=== PATIENT | female | born 1970 | race Caucasian/White ===

== ENCOUNTER 2018-12-10 13:25 | Inpatient (IN) | payer BC, MEDICAID ==
[~2018-12-10] VITALS: Ht 172.7 cm; Wt 72.6 kg
[2018-12-10 13:25] VITALS: BP_SYST 123
[2018-12-10] MEDS ORDERED: FOLIC ACID 1 MG, THIAMINE HCL 100 MG, MAGNESIUM SULFATE 1 GM, MVI 10 ML in NACL 0.9% 1,... IV ONE ×16 (13:45→17:00)
[2018-12-10] MEDS ORDERED: chlordiazePOXIDE HCL 25 MG CAPSULE PO ONE (13:45)
[2018-12-10 14:05] LABS: BASOPHILS % (AUTO) 0.3 % (0.0-2.0); EOSINOPHILS % (AUTO) 0.4 % (0.0-4.0); HEMATOCRIT 33.1 % (36-48); HEMOGLOBIN 10.2 g/dL (12.0-16.0); LYMPHOCYTES # (AUTO) 0.3 K/uL (1.0-5.5); LYMPHOCYTES % (AUTO) 5.6 % (20.5-51.5); MEAN CORPUSCULAR HEMOGLOBIN 25 pg (27-31); MEAN CORPUSCULAR HGB CONC 31 % (32-36); MEAN CORPUSCULAR VOLUME 81 fL (79.0-98.0); MONOCYTES # (AUTO) 0.5 K/uL (0.0-1.0); MONOCYTES % (AUTO) 8.9 % (1.7-9.3); NEUTROPHILS % (AUTO) 84.8 % (40.0-70.0); PLATELET COUNT (AUTO) 148 K/uL (130-430); RED BLOOD CELL COUNT(AUTO) 4.08 MIL/uL (4.2-6.2); RED CELL DISTRIBUTION WIDTH 19.3 % (9.0-15.0); WHITE BLOOD COUNT (AUTO) 5.9 K/uL (4.8-10.8)
[2018-12-10 14:19] LABS: ANION GAP 15 (5-15); CALCIUM 9.2 mg/dL (8.4-11.0); CHLORIDE 100 mmol/L (98-107); CREATININE 0.85 mg/dL (0.55-1.30); GLUCOSE 172 mg/dL (70-99); POTASSIUM 3.2 mmol/L (3.5-5.1); SODIUM SERUM 136 mmol/L (136-145); UREA NITROGEN, BLOOD 8 mg/dL (8-21)
[2018-12-10 14:22] LABS: PROTHROMBIN TIME 10.1 SECS (9.5-12.5)
[2018-12-10 14:23] LABS: ALANINE AMINOTRANSFERASE 51 U/L (12-78); ALBUMIN 3.7 g/dL (3.4-4.8); ASPARTATE AMINOTRANSFERASE 73 U/L (10-37); TOTAL BILIRUBIN 0.8 mg/dL (0.0-1.0)
[2018-12-10 14:24] LABS: ALCOHOL, BLOOD < 3 mg/dL (<10); GFR AFRICAN AMERICAN 91 mL/min (>90)
[2018-12-10] MEDS ORDERED: ONDANSETRON HCL 4 MG/2 ML VIAL IVP ONE (15:15)
[2018-12-10 15:30] LABS: BILIRUBIN,URINE NEGATIVE (NEGATIVE); BLOOD, URINE 1+ (NEGATIVE); CLARITY/URINE HAZY (CLEAR); COLOR,URINE YELLOW (YELLOW); GLUCOSE,URINE NEGATIVE (NEGATIVE); KETONES,URINE 2+ (NEGATIVE); LEUKOCYTE ESTERASE ,URINE NEGATIVE (NEGATIVE); NITRITE, URINE NEGATIVE (NEGATIVE); PROTEIN URINE 2+ (NEGATIVE); UROBILINOGEN,URINE 0.2 (0.2-1.0)
[2018-12-10 15:46] LABS: BARBITURATE, URINE NEGATIVE (NEG <=200); BENZODIAZEPINE, URINE NEGATIVE (NEG <=150); CANNABINOID, URINE NEGATIVE (NEG <=50); COCAINE, URINE NEGATIVE (NEG <=150); METHAMPHETAMINES SCREEN,URINE NEGATIVE (NEG <=500); OPIATE, URINE NEGATIVE (NEG <=100); PHENCYCLIDINE SCREEN,URINE NEGATIVE (NEG <=25); UR TRICYCLIC ANTIDEPRESSANTS NEGATIVE (NEG <=300); URINE AMPHETAMINE NEGATIVE (NEG <=500); URINE METHADONE NEGATIVE (NEG <=200); URINE OXYCODONE SCREEN NEGATIVE (NEG <=100); URINE PROPOXYPHENE SCREEN NEGATIVE (NEG <=300)
[2018-12-10] MEDS ORDERED: MONT10TA25 PO (15:48)
[2018-12-10] MEDS ORDERED: OMEP20TA20 PO (15:48)
[2018-12-10] MEDS ORDERED: PRO20 PO (15:48)
[2018-12-10] MEDS ORDERED: BUPR100T13 PO (15:48)
[2018-12-10] MEDS ORDERED: FLUT1DIS5 IH (15:48)
[2018-12-10 15:51] LABS: BACTERIA,URINE MODERATE /HPF (None Seen); MUCUS,URINE None Seen /LPF (None Seen); RBC,URINE 0-3 /HPF (0-3); WBC,URINE 0-3 /HPF (0-3)
[2018-12-10] MEDS ORDERED: chlordiazePOXIDE HCL 25 MG CAPSULE ONE (15:52)
[2018-12-10] MEDS ORDERED: POTASSIUM CHLORIDE 20 MEQ TAB.PRT.SR PO ONE (17:00)
[2018-12-10] MEDS ORDERED: PHENYTOIN 100 MG CAPSULE PO ONE (17:00)
[2018-12-10] MEDS ORDERED: cloNIDine HCL 0.1 MG TABLET PO PRN (17:00)
[2018-12-10] MEDS ORDERED: LORazepam 2 MG/ML VIAL IVP PRN (17:00)
[2018-12-10 17:48] VITALS: BP_SYST 119
[2018-12-10] MEDS: chlordiazePOXIDE HCL 25 MG CAPSULE PO SCH ×2 (17:51→21:01)
[2018-12-10] MEDS ORDERED: MORPHINE SULFATE 10 MG/5 ML ORAL SOL. UDC PO ONE (18:15)
[2018-12-10 19:30] VITALS: BP_SYST 121
[2018-12-10] MEDS: MORPHINE SULFATE 10 MG/5 ML ORAL SOL. UDC PO PRN ×2 (19:44→23:48)
[2018-12-10] MEDS: PHENYTOIN 100 MG CAPSULE PO SCH (21:01)
[2018-12-11 00:33] VITALS: BP_SYST 130
[2018-12-11] MEDS: MORPHINE SULFATE 10 MG/5 ML ORAL SOL. UDC PO PRN ×2 (03:45→08:36)
[2018-12-11 06:27] LABS: BASOPHILS % (AUTO) 0.7 % (0.0-2.0); EOSINOPHILS # (AUTO) 0.1 K/uL (0.0-0.4); EOSINOPHILS % (AUTO) 1.7 % (0.0-4.0); HEMATOCRIT 30.2 % (36-48); HEMOGLOBIN 9.3 g/dL (12.0-16.0); LYMPHOCYTES # (AUTO) 1.1 K/uL (1.0-5.5); LYMPHOCYTES % (AUTO) 24.4 % (20.5-51.5); MEAN CORPUSCULAR HEMOGLOBIN 25 pg (27-31); MEAN CORPUSCULAR HGB CONC 31 % (32-36); MEAN CORPUSCULAR VOLUME 81 fL (79.0-98.0); MONOCYTES # (AUTO) 0.6 K/uL (0.0-1.0); NEUTROPHILS # (AUTO) 2.8 K/uL (1.8-7.7); NEUTROPHILS % (AUTO) 60.2 % (40.0-70.0); PLATELET COUNT (AUTO) 123 K/uL (130-430); RED BLOOD CELL COUNT(AUTO) 3.71 MIL/uL (4.2-6.2); WHITE BLOOD COUNT (AUTO) 4.6 K/uL (4.8-10.8)
[2018-12-11 07:01] LABS: CREATININE 0.61 mg/dL (0.55-1.30)
[2018-12-11 07:13] LABS: TOTAL BILIRUBIN 0.6 mg/dL (0.0-1.0)
[2018-12-11 07:48] LABS: POTASSIUM 2.9 mmol/L (3.5-5.1)
[2018-12-11 08:00] VITALS: BP_SYST 115
[2018-12-11] MEDS: buPROPion HCL 100 MG TABLET PO SCH (08:25)
[2018-12-11] MEDS: chlordiazePOXIDE HCL 25 MG CAPSULE PO SCH ×4 (08:25→21:03)
[2018-12-11] MEDS: OMEPRAZOLE 20 MG CAPSULE.DR (PriLOSEC) PO SCH (08:25)
[2018-12-11] MEDS: FLUoxetine HCL 20 MG CAPSULE (PROzac) PO SCH (08:25)
[2018-12-11] MEDS: MONTELUKAST 10 MG TABLET PO SCH (08:26)
[2018-12-11] MEDS ORDERED: POTASSIUM CHLORIDE 40 MEQ, LIDOCAINE JECT 2% PF 100 MG 50 MG in NS 250 ML IV ONE (08:30)
[2018-12-11] MEDS ORDERED: FOLIC ACID 1 MG TABLET PO SCH (09:00)
[2018-12-11] MEDS ORDERED: THIAMINE HCL 100 MG TABLET PO SCH (09:00)
[2018-12-11 12:37] VITALS: BP_SYST 112
[2018-12-11] MEDS: FOLIC ACID 1 MG, THIAMINE HCL 100 MG, MAGNESIUM SULFATE 1 GM, MVI 10 ML in NACL 0.9% 1,... IV SCH (14:22)
[2018-12-11 16:21] VITALS: BP_SYST 104
[2018-12-11 20:24] VITALS: BP_SYST 112
[2018-12-11] MEDS: POTASSIUM CHLORIDE 20 MEQ/PKT PACKET PO SCH (21:03)
[2018-12-11] MEDS: PHENYTOIN 100 MG CAPSULE PO SCH (21:03)
[2018-12-12 00:28] VITALS: BP_SYST 111
[2018-12-12 06:49] LABS: BASOPHILS % (AUTO) 0.5 % (0.0-2.0); EOSINOPHILS # (AUTO) 0.2 K/uL (0.0-0.4); EOSINOPHILS % (AUTO) 2.9 % (0.0-4.0); HEMATOCRIT 33.1 % (36-48); HEMOGLOBIN 10.2 g/dL (12.0-16.0); LYMPHOCYTES # (AUTO) 1.2 K/uL (1.0-5.5); LYMPHOCYTES % (AUTO) 22.6 % (20.5-51.5); MEAN CORPUSCULAR HEMOGLOBIN 25 pg (27-31); MEAN CORPUSCULAR HGB CONC 31 % (32-36); MONOCYTES # (AUTO) 0.6 K/uL (0.0-1.0); MONOCYTES % (AUTO) 10.6 % (1.7-9.3); NEUTROPHILS # (AUTO) 3.5 K/uL (1.8-7.7); NEUTROPHILS % (AUTO) 63.4 % (40.0-70.0); PLATELET COUNT (AUTO) 154 K/uL (130-430); RED BLOOD CELL COUNT(AUTO) 4.01 MIL/uL (4.2-6.2); RED CELL DISTRIBUTION WIDTH 19.2 % (9.0-15.0); WHITE BLOOD COUNT (AUTO) 5.5 K/uL (4.8-10.8)
[2018-12-12 07:13] LABS: MEAN CORPUSCULAR VOLUME 83 fL (79.0-98.0)
[2018-12-12 08:04] LABS: ALBUMIN 3.2 g/dL (3.4-4.8); CALCIUM 9.2 mg/dL (8.4-11.0); CREATININE 0.53 mg/dL (0.55-1.30); POTASSIUM 3.4 mmol/L (3.5-5.1); TOTAL BILIRUBIN 0.5 mg/dL (0.0-1.0)
[2018-12-12 08:15] VITALS: BP_SYST 119
[2018-12-12] MEDS: FLUoxetine HCL 20 MG CAPSULE (PROzac) PO SCH (08:37)
[2018-12-12] MEDS: OMEPRAZOLE 20 MG CAPSULE.DR (PriLOSEC) PO SCH (08:37)
[2018-12-12] MEDS: MONTELUKAST 10 MG TABLET PO SCH (08:37)
[2018-12-12] MEDS: chlordiazePOXIDE HCL 25 MG CAPSULE PO SCH ×4 (08:37→21:21)
[2018-12-12] MEDS: POTASSIUM CHLORIDE 20 MEQ/PKT PACKET PO SCH ×2 (08:37→21:21)
[2018-12-12] MEDS: buPROPion HCL 100 MG TABLET PO SCH (08:39)
[2018-12-12 12:20] VITALS: BP_SYST 100
[2018-12-12] MEDS: FOLIC ACID 1 MG, THIAMINE HCL 100 MG, MAGNESIUM SULFATE 1 GM, MVI 10 ML in NACL 0.9% 1,... IV SCH (14:14)
[2018-12-12 16:04] VITALS: BP_SYST 110
[2018-12-12] MEDS: PHENYTOIN 100 MG CAPSULE PO SCH (21:21)
[2018-12-12 21:38] VITALS: BP_SYST 114
[2018-12-13 01:11] VITALS: BP_SYST 112
[2018-12-13 06:27] LABS: BASOPHILS % (AUTO) 0.5 % (0.0-2.0); EOSINOPHILS # (AUTO) 0.2 K/uL (0.0-0.4); EOSINOPHILS % (AUTO) 3.3 % (0.0-4.0); HEMATOCRIT 30.9 % (36-48); HEMOGLOBIN 9.7 g/dL (12.0-16.0); LYMPHOCYTES # (AUTO) 1.2 K/uL (1.0-5.5); LYMPHOCYTES % (AUTO) 22.1 % (20.5-51.5); MEAN CORPUSCULAR HEMOGLOBIN 26 pg (27-31); MEAN CORPUSCULAR HGB CONC 32 % (32-36); MEAN CORPUSCULAR VOLUME 82 fL (79.0-98.0); MONOCYTES # (AUTO) 0.7 K/uL (0.0-1.0); MONOCYTES % (AUTO) 12.5 % (1.7-9.3); NEUTROPHILS # (AUTO) 3.3 K/uL (1.8-7.7); NEUTROPHILS % (AUTO) 61.6 % (40.0-70.0); PLATELET COUNT (AUTO) 141 K/uL (130-430); RED BLOOD CELL COUNT(AUTO) 3.75 MIL/uL (4.2-6.2); RED CELL DISTRIBUTION WIDTH 19.4 % (9.0-15.0); WHITE BLOOD COUNT (AUTO) 5.3 K/uL (4.8-10.8)
[2018-12-13 07:12] LABS: ALBUMIN 2.8 g/dL (3.4-4.8); CALCIUM 8.9 mg/dL (8.4-11.0); CREATININE 0.53 mg/dL (0.55-1.30); POTASSIUM 3.9 mmol/L (3.5-5.1); TOTAL BILIRUBIN 0.3 mg/dL (0.0-1.0)
[2018-12-13 07:51] VITALS: BP_SYST 128
[2018-12-13] MEDS: FLUoxetine HCL 20 MG CAPSULE (PROzac) PO SCH (09:33)
[2018-12-13] MEDS: MONTELUKAST 10 MG TABLET PO SCH (09:33)
[2018-12-13] MEDS: buPROPion HCL 100 MG TABLET PO SCH (09:33)
[2018-12-13] MEDS: POTASSIUM CHLORIDE 20 MEQ/PKT PACKET PO SCH (09:33)
[2018-12-13] MEDS: OMEPRAZOLE 20 MG CAPSULE.DR (PriLOSEC) PO SCH (09:33)
[2018-12-13] MEDS: chlordiazePOXIDE HCL 25 MG CAPSULE PO SCH ×3 (09:34→16:14)
[2018-12-13 12:18] VITALS: BP_SYST 127
[2018-12-13] MEDS: FOLIC ACID 1 MG, THIAMINE HCL 100 MG, MAGNESIUM SULFATE 1 GM, MVI 10 ML in NACL 0.9% 1,... IV SCH (12:20)
[2018-12-13] MEDS: MORPHINE SULFATE 10 MG/5 ML ORAL SOL. UDC PO PRN (12:40)
[2018-12-13 15:45] VITALS: BP_SYST 109
[2018-12-13 18:06] VITALS: BP_SYST 96
[2018-12-13] MEDS ORDERED: FOLI-43 PO (18:13)
[2018-12-13] MEDS ORDERED: PRO40 PO (18:14)
[2018-12-13] MEDS ORDERED: THIA50TA10 PO (18:14)
[2018-12-13] MEDS ORDERED: PHEN100C4 PO (18:14)
[2018-12-13] MEDS ORDERED: LIB10 PO (18:15)
[2018-12-13] MEDS ORDERED: ACAMPROSATE CALCIUM 333 MG TABLET.DR PO SCH (21:00)
== END 2018-12-13 18:45 | disposition home or self-care (01) | DRG 53 ==
LOC: SED 13:25 → STU 16:28
PROVIDERS: ADMIT Internal Medicine; ATTEND Internal Medicine
DX: G40.89 Other seizures (principal); F33.9 Major depressive disorder, recurrent, unspecified; E87.6 Hypokalemia; F10.239 Alcohol dependence with withdrawal, unspecified; F41.9 Anxiety disorder, unspecified; J45.909 Unspecified asthma, uncomplicated
CPT/HCPCS: 36415; 70450-TC; 71045; 80053; 80307; 81000-TC; 82105; 84484; 84703; 85025; 85610-TC; 85730-TC; 87086; 93005; 95816; 96374; 97116-GP; 97530-GP; 99285; G0378; G0482; J2405; J3411; J3475; J3480; J3490; J7030; J7050

== ENCOUNTER 2018-12-30 21:52 | Inpatient (IN) | payer MEDICAID ==
[~2018-12-30] VITALS: Ht 172.7 cm; Wt 72.1 kg
[2018-12-30 21:52] VITALS: BP_SYST 137
[~2018-12-30 21:52] MED LIST: BUPR100T13 PO; FLUT1DIS5 IH; FOLI-43 PO; LIB10 PO; MONT10TA25 PO; OMEP20TA20 PO; PHEN100C4 PO; PRO20 PO; PRO40 PO; THIA50TA10 PO
--- NOTE | 2018-12-30 21:52 | NUR ---
Patient to ER bed 07 to gown for evaluation. Side rails up. Report given to GEORGETTE Soliz
--- NOTE | 2018-12-30 21:56 | NUR ---
ER at bedside examining patient.
[2018-12-30] MEDS ORDERED: ALBUTEROL SULFATE 0.083% 2.5 MG/3 ML VIAL.NEB IH ONE (22:00)
[2018-12-30] MEDS ORDERED: IPRATROPIUM BROM 0.5 MG/2.5 ML VIAL.NEB (ATROVENT) IH ONE (22:00)
--- NOTE | 2018-12-30 22:15 | NUR ---
Pt BIB son to ED C/O acute asthma exacerbation associated with SOB for about 20 min prior to arrival. Pt reportedly rapidly drank beer from a "beer bong" prior to symptom onset. She is concern she may have aspirated some beer. The Pt's nebulizer was malfunctioning and her Advair provided no improvement. Last month patient was admitted her for alcohol withdrawal seizure as she was attempting to quit alcohol at that time. Pt admits to drinking alcohol throughout the day today. Pt with med Hx of asthma and alcohol abuse. No other injuries and or complaints noted. VSS (low O2 sat addressed with RT at bedside starting ABG draw and adm of breathing tx) no other s/s of acute distress. Resting on gurney with rails up
[2018-12-30 22:27] LABS: BASOPHILS # (AUTO) 0.1 K/uL (0.0-0.2); BASOPHILS % (AUTO) 1.1 % (0.0-2.0); EOSINOPHILS # (AUTO) 0.2 K/uL (0.0-0.4); EOSINOPHILS % (AUTO) 3.8 % (0.0-4.0); HEMOGLOBIN 11.3 g/dL (12.0-16.0); LYMPHOCYTES # (AUTO) 2.8 K/uL (1.0-5.5); LYMPHOCYTES % (AUTO) 48.2 % (20.5-51.5); MEAN CORPUSCULAR HEMOGLOBIN 25 pg (27-31); MEAN CORPUSCULAR HGB CONC 31 % (32-36); MEAN CORPUSCULAR VOLUME 81 fL (79.0-98.0); MONOCYTES # (AUTO) 0.3 K/uL (0.0-1.0); NEUTROPHILS # (AUTO) 2.3 K/uL (1.8-7.7); NEUTROPHILS % (AUTO) 40.9 % (40.0-70.0); PLATELET COUNT (AUTO) 326 K/uL (130-430); RED BLOOD CELL COUNT(AUTO) 4.44 MIL/uL (4.2-6.2); RED CELL DISTRIBUTION WIDTH 18.8 % (9.0-15.0); WHITE BLOOD COUNT (AUTO) 5.7 K/uL (4.8-10.8)
[2018-12-30 22:36] LABS: CALCIUM 9.4 mg/dL (8.4-11.0); CREATININE 0.67 mg/dL (0.55-1.30); POTASSIUM 3.6 mmol/L (3.5-5.1)
--- NOTE | 2018-12-30 22:37 | NUR ---
Portable X Ray bedside, Pt in stable condition
[2018-12-30 22:42] LABS: ALBUMIN 3.7 g/dL (3.4-4.8); TOTAL BILIRUBIN 0.2 mg/dL (0.0-1.0)
[2018-12-30] MEDS ORDERED: NACL 0.9% 1,000 ML IV ONE (22:45)
[2018-12-30] MEDS ORDERED: methylPREDNISolone SOD SUCC/PF 62.5 MG/ML VIAL IVP ONE (23:15)
[2018-12-30] MEDS ORDERED: FOLIC ACID 1 MG, THIAMINE HCL 100 MG, MAGNESIUM SULFATE 1 GM, MVI 10 ML in NACL 0.9% 1,... IV ONE (23:30)
--- NOTE | 2018-12-30 23:30 | NUR ---
VSS, no s/s of acute distress. Resting on gurney with rails up
[2018-12-31] VITALS (7 sets, daily range): BP systolic 113–128
[2018-12-31] MEDS ORDERED: MAGNESIUM SULFATE 1 GM/2 ML VIAL ONE (00:07)
[2018-12-31] MEDS ORDERED: FOLIC ACID 5 MG/ML VIAL IV ONE (00:07)
[2018-12-31] MEDS ORDERED: THIAMINE HCL 100 MG/ML VIAL ONE (00:07)
[2018-12-31] MEDS ORDERED: MVI 10 ML VIAL IV ONE (00:07)
--- NOTE | 2018-12-31 00:19 | NUR ---
Patient will be admitted to care of Dr. Bartlett. Admitted to Telemetry unit. Will go to room 120. Belongings list completed. Summary report printed. Report will be given at bedside.
--- NOTE | 2018-12-31 00:19 | NUR ---
ADMIT NOTE Received pt from ER to the floor with a diagnosis of acute respiratory failure. Admission process initiated. patient oriented to pain management, safety and call light-teach back done.
--- NOTE | 2018-12-31 00:19 | NUR ---
Transfer to Telemetry via ACLS protocol. Licensed nurse present. IV present no signs or symptoms of infiltration.
--- NOTE | 2018-12-31 00:40 | NUR ---
CONSULTATION PAGED REASON FOR CONSULTATION: Respiratory Failure WAS CONSULT CALLED? Yes PERSON WHO WAS NOTIFIED: Chelle CONSULTING PHYSICIAN: Dr. Jain (Dr. Garcia is the On-Call Physician) WAREHOUSE ADMINISTRATIVE ASSISTANT SPECIALTY: Pulmonary WAREHOUSE ADMINISTRATIVE ASSISTANT PHONE NUMBER: REQUESTING PHYSICIAN: Dr. Bartlett
[2018-12-31] MEDS: IPRATROPIUM/ALBUTEROL SULFATE 3 ML AMPUL.NEB (DUONEB) INH SCH ×3 (01:31→11:24)
--- NOTE | 2018-12-31 02:32 | NUR ---
Patient in bed asleep with audible breath sounds heard. On 2L NC and tolerating well. Will cont to monitor for any respiratory distress.
--- NOTE | 2018-12-31 04:10 | NUR ---
No change in condition from previous note.
[2018-12-31] MEDS ORDERED: methylPREDNISolone SOD SUCC/PF 62.5 MG/ML VIAL IVP SCH (06:00)
--- NOTE | 2018-12-31 06:45 | NUR ---
Closing Notes Patient in bed resting. Solu-medrol given and tolerated well. No chest pain or respiratory distress. On 2L NC with o2 sat at 93%. Call light within reach. All needs have been met and will endorse care to oncoming Shift.
--- NOTE | 2018-12-31 07:41 | NUR ---
OPENING NOTE Patient resting in the bed. No acute distress. Respiration even and unlabored. AAO x 4. Denied of pain. Skin warm and dry to touch. IV intact to LAC, no redness, no swelling, no drainage. On banana bag at 100ml/hr, infusing well. Discussed the safety issue, use call light when needs help, and plan of care, verbally understanding. Safety measure maintained. Call light within reached. Bed locked in low position, side rails up. Refused bed alarm, risk and benefit explained, verbally understanding. Will continue to monitor.
[2018-12-31] MEDS: FAMOTIDINE PF 20 MG/2 ML VIAL IVP SCH ×2 (08:49→20:27)
--- NOTE | 2018-12-31 10:08 | NUR ---
SEEN AND EXAMINED BY JACQUELYN PARADA Dr. (cover for Dr. Jain) assessed patient at bedside. Explained and answered the questions to patient. Dr. Garcia stated "that is okay to discharge patient on my point, tell Dr. Bartlett when he comes".
--- NOTE | 2018-12-31 12:20 | NUR ---
LUNCH Patient sitting in upright position and eating lunch. Continue on O2 via NC. Safety measure maintained. Call light within reached. Bed locked in low position, side rails up. Continue to monitor.
[2018-12-31] MEDS ORDERED: buPROPion HCL 100 MG TABLET PO ONE (12:45)
[2018-12-31] MEDS ORDERED: FOLIC ACID 1 MG, THIAMINE HCL 100 MG, MAGNESIUM SULFATE 1 GM, MVI 10 ML in NACL 0.9% 1,... IV SCH (12:45)
[2018-12-31] MEDS ORDERED: FOLIC ACID 1 MG TABLET PO SCH (12:45)
[2018-12-31] MEDS ORDERED: PANTOPRAZOLE SODIUM 40 MG TAB PO SCH (12:45)
[2018-12-31] MEDS ORDERED: FLUoxetine HCL 20 MG CAPSULE (PROzac) PO ONE (12:45)
[2018-12-31] MEDS ORDERED: THIAMINE HCL 100 MG TABLET PO SCH (12:45)
[2018-12-31] MEDS ORDERED: MONTELUKAST 10 MG TABLET PO SCH ×2 (12:45→21:00)
[2018-12-31] MEDS ORDERED: chlordiazePOXIDE HCL 10 MG CAPSULE PO SCH (12:45)
--- NOTE | 2018-12-31 12:57 | NUR ---
SEEN AND EXAMINED BY GEOVANNA ANTONY WITH ORDER
--- NOTE | 2018-12-31 12:58 | NUR ---
INFORMED TO DR. POPE, PER DR. AFIA BAKER TO DISCHARGE PATIENT ON HIS POINT. Dr. Pope assessed patient at bedside. Explained and answered question to patient and stated that not to discharge today.
[2018-12-31] MEDS ORDERED: IPRATROPIUM/ALBUTEROL SULFATE 3 ML AMPUL.NEB (DUONEB) INH PRN (13:00)
[2018-12-31] MEDS ORDERED: PANTOPRAZOLE SODIUM 40 MG TAB PO ONE (13:45)
--- NOTE | 2018-12-31 14:05 | NUR ---
O2 SAT=92% IN ROOM AIR Per Dr. Bartlett off O2 and checked O2 sat one hour after. O2 sat checked with 92% in room air. No acute distress. Safety measure maintained. Call light within reached. Bed locked in low position, side rails up. Continue to monitor.
[2018-12-31] MEDS: chlordiazePOXIDE HCL 10 MG CAPSULE PO SCH ×3 (14:09→20:29)
--- NOTE | 2018-12-31 16:25 | NUR ---
RESTING Patient resting in the bed with eyes closed. No acute distress. IV intact, infusing banana bag at this time. Safety measure maintained. Call light within reached. Bed locked in low position, side rails up. Continue to monitor.
--- NOTE | 2018-12-31 18:50 | NUR ---
CLOSING NOTE Patient resting in the bed. No acute distress. Respiration even and unlabored. Denied of pain. Skin warm and dry to touch. IV intact to LAC, no redness, no swelling, no drainage. On banana bag at 100ml/hr, infusing well. All needs met. Safety measure maintained. Call light within reached. Bed locked in low position, side rails up. Refused bed alarm, risk and benefit explained, verbally understanding. Will endorse to night nurse.
--- NOTE | 2018-12-31 19:25 | NUR ---
Opening Note Received patient in bed resting. AAOx4 and able to verbalize her needs. On room air with o2 sat at 95%. No pain or respiratory distress. IV fluids , Banana bag infusing with no s/s of infiltration or infection. Bed alarm refused. Education provided on risk and benefits, but patient still refused. Seizure pads, precautions in place. Bed low and locked and will monitor on rounds.
[2018-12-31] MEDS ORDERED: PHENYTOIN 100 MG CAPSULE PO SCH (21:00)
[2018-12-31] MEDS: LORazepam 2 MG/ML VIAL IM PRN (22:02)
--- NOTE | 2018-12-31 22:11 | NUR ---
Ativan 1mg given for anxiety. Patient states she feels anxious and can't sleep. No pain or respiratory distress. Call light within reach and will monitor on rounds.
--- NOTE | 2018-12-31 22:12 | NUR ---
bed alarm on. patient is aware and agrees to safety precaution. Call light within reach.
--- NOTE | 2019-01-01 00:05 | NUR ---
Patient asleep in bed with audible breath sounds heard. Bed alarm is active and will cont to monitor patient for any change in condition.
[2019-01-01 00:34] VITALS: BP_SYST 111
[2019-01-01] MEDS: LORazepam 2 MG/ML VIAL IM PRN (02:12)
--- NOTE | 2019-01-01 02:13 | NUR ---
Administered Ativan IVp 1 mg per patient stating still having anxiety. Tolerated well. Bed alarm is active. No pain or respiratory distress. Call light within reach. Will cont to monitor on rounds.
--- NOTE | 2019-01-01 04:41 | NUR ---
PATIENT IN BED ASLEEP. NO CHANGE IN CONDITION.
[2019-01-01 06:09] LABS: CALCIUM 8.5 mg/dL (8.4-11.0); CREATININE 0.53 mg/dL (0.55-1.30); POTASSIUM 3.3 mmol/L (3.5-5.1)
[2019-01-01 06:17] LABS: BASOPHILS % (AUTO) 0.1 % (0.0-2.0); HEMATOCRIT 31.4 % (36-48); HEMOGLOBIN 9.8 g/dL (12.0-16.0); LYMPHOCYTES # (AUTO) 0.9 K/uL (1.0-5.5); LYMPHOCYTES % (AUTO) 10.8 % (20.5-51.5); MEAN CORPUSCULAR HEMOGLOBIN 25 pg (27-31); MEAN CORPUSCULAR HGB CONC 31 % (32-36); MEAN CORPUSCULAR VOLUME 81 fL (79.0-98.0); MONOCYTES # (AUTO) 0.7 K/uL (0.0-1.0); MONOCYTES % (AUTO) 8.6 % (1.7-9.3); NEUTROPHILS # (AUTO) 6.7 K/uL (1.8-7.7); NEUTROPHILS % (AUTO) 80.5 % (40.0-70.0); PLATELET COUNT (AUTO) 256 K/uL (130-430); RED BLOOD CELL COUNT(AUTO) 3.89 MIL/uL (4.2-6.2); WHITE BLOOD COUNT (AUTO) 8.3 K/uL (4.8-10.8)
[2019-01-01 06:19] LABS: TOTAL BILIRUBIN 0.3 mg/dL (0.0-1.0)
--- NOTE | 2019-01-01 06:21 | NUR ---
Closing Notes Patient in bed resting. No chest pain or respiratory distress. Bed alarm is off, patient ambulated to the bathroom with steady gait. IV intact saline lock with no s/s of infiltration. Call light within reach. All needs have been met and will endorse care to oncoming Shift.
--- NOTE | 2019-01-01 07:26 | NUR ---
Opening Note: Patient in bed resting. Patient denies pain and discomfort. Breathing is even and unlabored with no distress noted. IV patent and intact. Seizure precautions in place. Patient refused SCD's and bed alarm. Safety precautions in place, bed in lowest position, wheels locked, side rails x2 and call light within reach. No needs at this time. Will continue to monitor.
[2019-01-01 08:02] VITALS: BP_SYST 108
[2019-01-01] MEDS: FAMOTIDINE PF 20 MG/2 ML VIAL IVP SCH (08:05)
[2019-01-01] MEDS: chlordiazePOXIDE HCL 10 MG CAPSULE PO SCH (08:05)
[2019-01-01] MEDS ORDERED: PANTOPRAZOLE SODIUM 40 MG TAB PO SCH (09:00)
[2019-01-01] MEDS ORDERED: NON-FORMULARY MEDICATION (Fluticasone/Salmeterol (Advair 500-50 Diskus) 1 EACH) IH SCH (09:00)
[2019-01-01] MEDS ORDERED: buPROPion HCL 100 MG TABLET PO SCH (09:00)
[2019-01-01] MEDS ORDERED: OMEPRAZOLE Non-Formulary 20 MG CAPSULE.DR PO SCH (09:00)
[2019-01-01] MEDS ORDERED: FLUoxetine HCL 20 MG CAPSULE (PROzac) PO SCH (09:00)
--- NOTE | 2019-01-01 10:35 | NUR ---
Paging Dr. Bartlett: Paging Dr. Bartlett. Awaiting callback. Regarding patient's discharge.
--- NOTE | 2019-01-01 10:55 | NUR ---
AMA: Patient does not wish to proceed with medical care recommended by Dr. Bartlett. Patient given information related to possible complications, up to and including , which could occur as a result of leaving hospital at this time. Patient verbalizes understanding of risks involved leaving against medical advice. Patient has signed AMA form. Dr. Bartlett made aware, ALEXIS made aware.
[2019-01-01 11:29] VITALS: BP_SYST 122
== END 2019-01-01 10:55 | disposition left against medical advice (07) | DRG 143 ==
LOC: SED 21:52 → STU 23:18
PROVIDERS: ADMIT Internal Medicine; ATTEND Internal Medicine
DX: T17.920A Food in respiratory tract, part unspecified causing asphyxiation, initial encounter (principal); R65.11 Systemic inflammatory response syndrome (SIRS) of non-infectious origin with acute organ dysfunction; J45.901 Unspecified asthma with (acute) exacerbation; F10.229 Alcohol dependence with intoxication, unspecified; Y90.9 Presence of alcohol in blood, level not specified; K21.9 Gastro-esophageal reflux disease without esophagitis; Z82.5 Family history of asthma and other chronic lower respiratory diseases
CPT/HCPCS: 36415; 36600; 71045; 80053; 82803-TC; 85025; 87040-TC; 87081; 93005; 94640; 94760; 96365; 96367; 96375; 99291; G0378; G0482; J1956; J2060; J2930; J3411; J3475; J3490; J7030; J7613; J7620

== ENCOUNTER 2020-02-05 13:01 | Emergency (ER) | payer MEDICAID ==
[~2020-02-05] VITALS: Ht 172.7 cm; Wt 67.1 kg
[2020-02-05 13:11] VITALS: BP_SYST 152
--- NOTE | 2020-02-05 13:11 | NUR ---
Patient to ER bed 07 to gown for evaluation. Side rails up.
--- NOTE | 2020-02-05 13:20 | NUR ---
Pt came to ER for anxiety, shakiness, states she is addicted to alcohol. Drinks 1 bottle of whiskey everyday, has not had a drink today and is seeking sobriety. Resting in bed, VSS, no distress noted.
--- NOTE | 2020-02-05 13:25 | NUR ---
ER at bedside examining patient.
[2020-02-05] MEDS ORDERED: LORazepam 2 MG/ML VIAL IVP ONE (13:30)
--- NOTE | 2020-02-05 13:50 | NUR ---
Social Service Note: REVENUE DIRECTOR called to ED to provide pt with substance abuse treatment resources. REVENUE DIRECTOR met with pt at bedside. Pt states that she wants to go to detox for her drinking. REVENUE DIRECTOR went over the substance abuse treatment resources with pt and outpatient mental health providers. REVENUE DIRECTOR encouraged pt to contact her insurance company to see what rehab programs may be covered under her insurance. REVENUE DIRECTOR answered pt's questions. REVENUE DIRECTOR will remain available for support and will follow up as needed.
--- NOTE | 2020-02-05 13:51 | NUR ---
Risk Reduction Counselor [place] spoke with pt regarding rehab resources
--- NOTE | 2020-02-05 14:00 | NUR ---
Spoke with pt friend. She will be here to give pt ride in about 30 min
[2020-02-05 14:53] VITALS: BP_SYST 107
== END 2020-02-05 14:53 | disposition home or self-care (01) ==
LOC: SED 13:01
DX: F10.239 Alcohol dependence with withdrawal, unspecified (principal); J45.909 Unspecified asthma, uncomplicated; Y90.9 Presence of alcohol in blood, level not specified; Z79.899 Other long term (current) drug therapy
CPT/HCPCS: 96374; 99283; J2060

== ENCOUNTER 2020-10-11 02:34 | Emergency (ER) | payer MEDICAID ==
[~2020-10-11] VITALS: Ht 172.7 cm; Wt 81.6 kg
[~2020-10-11 02:34] MED LIST changes: -MONT10TA25 PO; +MONT10TA27 PO
[2020-10-11 02:50] VITALS: BP_SYST 126
[2020-10-11 03:47] LABS: BASOPHILS # (AUTO) 0.2 K/uL (0.0-0.2); BASOPHILS % (AUTO) 2.7 % (0.0-2.0); EOSINOPHILS # (AUTO) 0.6 K/uL (0.0-0.4); EOSINOPHILS % (AUTO) 10.6 % (0.0-4.0); HEMATOCRIT 42.2 % (36-48); HEMOGLOBIN 14.1 g/dL (12.0-16.0); LYMPHOCYTES # (AUTO) 1.4 K/uL (1.0-5.5); LYMPHOCYTES % (AUTO) 22.3 % (20.5-51.5); MEAN CORPUSCULAR HEMOGLOBIN 31 pg (27-31); MEAN CORPUSCULAR HGB CONC 34 % (32-36); MEAN CORPUSCULAR VOLUME 92 fL (79.0-98.0); MONOCYTES # (AUTO) 0.5 K/uL (0.0-1.0); MONOCYTES % (AUTO) 7.6 % (1.7-9.3); NEUTROPHILS # (AUTO) 3.5 K/uL (1.8-7.7); NEUTROPHILS % (AUTO) 56.8 % (40.0-70.0); PLATELET COUNT (AUTO) 175 K/uL (130-430); WHITE BLOOD COUNT (AUTO) 6.1 K/uL (4.8-10.8)
[2020-10-11 03:49] LABS: CALCIUM 8.8 mg/dL (8.4-11.0); CREATININE 0.67 mg/dL (0.55-1.30); POTASSIUM 3.7 mmol/L (3.5-5.1)
[2020-10-11 03:55] LABS: ALBUMIN 3.7 g/dL (3.4-4.8); TOTAL BILIRUBIN 0.4 mg/dL (0.0-1.0)
[2020-10-11 04:44] LABS: BILIRUBIN,URINE 1+ (NEGATIVE); BLOOD, URINE NEGATIVE (NEGATIVE); CLARITY/URINE CLEAR (CLEAR); COLOR,URINE YELLOW (YELLOW); GLUCOSE,URINE NEGATIVE (NEGATIVE); KETONES,URINE TRACE (NEGATIVE); LEUKOCYTE ESTERASE ,URINE 1+ (NEGATIVE); NITRITE, URINE NEGATIVE (NEGATIVE); PH,URINE 5.5 (5.0-8.0); PROTEIN URINE NEGATIVE (NEGATIVE); UROBILINOGEN,URINE 0.2 (0.2-1.0)
[2020-10-11 04:51] LABS: BACTERIA,URINE FEW /HPF (None Seen); RBC,URINE 0-3 /HPF (0-3)
[2020-10-11] MEDS ORDERED: methocarbamoL 500 MG TABLET ONE (05:11)
[2020-10-11] MEDS ORDERED: cefTRIAXone 1 GM VIAL ONE (05:11)
[2020-10-11] MEDS ORDERED: KETOROLAC TROMETHAMINE 60 MG/2 ML VIAL IM ONE ×2 (05:11→05:15)
[2020-10-11] MEDS ORDERED: methocarbamoL 500 MG TABLET PO ONE (05:15)
[2020-10-11] MEDS ORDERED: cefTRIAXone 1 GM in LIDOCAINE 1%, 20 ML MDV 2.1 ML IM ONE (05:15)
[2020-10-11] MEDS ORDERED: KETOROLAC TROMETHAMINE 30 MG VIAL IVP ONE (05:15)
[2020-10-11] MEDS ORDERED: CEPH-568 PO (05:36)
[2020-10-11] MEDS ORDERED: METH750T3 PO (05:39)
[2020-10-11 05:48] VITALS: BP_SYST 116
== END 2020-10-11 05:48 | disposition home or self-care (01) ==
LOC: SED 02:34
DX: N39.0 Urinary tract infection, site not specified (principal); M54.5 Low back pain; J45.909 Unspecified asthma, uncomplicated; Z79.899 Other long term (current) drug therapy
CPT/HCPCS: 36415; 74176; 76376; 80053; 81000; 81025; 85025; 87086; 96372; 99284; J0696; J1885

== ENCOUNTER 2020-11-16 20:33 | Emergency (ER) | payer MEDICAID ==
[~2020-11-16] VITALS: Ht 172.7 cm; Wt 81.6 kg
[~2020-11-16 20:33] MED LIST changes: +CEPH-568 PO; +METH-634 PO; -MONT10TA27 PO; +MONT10TA33 PO
[2020-11-16 21:26] VITALS: BP_SYST 130
--- NOTE | 2020-11-16 21:30 | NUR ---
Patient triaged and placed in waiting room. VSS and patient appears in no acute distress at this time. Awaiting available bed, and MD notified of need for MSE.
[2020-11-16 22:26] LABS: BILIRUBIN,URINE NEGATIVE (NEGATIVE); BLOOD, URINE NEGATIVE (NEGATIVE); CLARITY/URINE CLEAR (CLEAR); COLOR,URINE YELLOW (YELLOW); GLUCOSE,URINE NEGATIVE (NEGATIVE); KETONES,URINE TRACE (NEGATIVE); LEUKOCYTE ESTERASE ,URINE TRACE (NEGATIVE); NITRITE, URINE NEGATIVE (NEGATIVE); PH,URINE 5.5 (5.0-8.0); PROTEIN URINE NEGATIVE (NEGATIVE); UROBILINOGEN,URINE 0.2 (0.2-1.0)
[2020-11-16 22:45] LABS: BACTERIA,URINE MANY /HPF (None Seen); RBC,URINE 0-3 /HPF (0-3)
[2020-11-16 22:46] LABS: CALCIUM OXALATE CRYSTALS,UR 0-10 /HPF (None Seen)
[2020-11-16 22:47] LABS: URINE AMORPHOUS URATE 1+ /HPF (None Seen)
--- NOTE | 2020-11-16 22:47 | NUR ---
Patient did not want to stay. Patient left without being seen. No further treamtment provided. ER MD aware
[2020-11-16 22:48] LABS: MUCUS,URINE 3+ /LPF (None Seen)
== END 2020-11-16 22:47 | disposition home or self-care (01) ==
LOC: SED 20:33
DX: N39.0 Urinary tract infection, site not specified (principal); Z53.21 Procedure and treatment not carried out due to patient leaving prior to being seen by health care provider
CPT/HCPCS: 81000; 87086

== ENCOUNTER 2021-07-08 09:12 | Emergency (ER) | payer MEDICAID, SELFPAY ==
[~2021-07-08] VITALS: Ht 172.7 cm; Wt 65.3 kg
[2021-07-08 09:15] VITALS: BP_SYST 142
--- NOTE | 2021-07-08 09:15 | NUR ---
Placed in room 5 . Placed on electronic device monitor, blood pressure machine and pulse oximeter. To gown for exam. Side rails up. Report given to GEORGETTE BEE.
--- NOTE | 2021-07-08 09:28 | NUR ---
ER Dr. Zaman at bedside examining patient.
--- NOTE | 2021-07-08 09:38 | NUR ---
Pt c/o nausea, vomitting "a lot, all sorts of colors." Pt states she needs to stop drinking and has been heaving with some emesis. No other complaints at this time.
[2021-07-08] MEDS ORDERED: PANTOPRAZOLE SODIUM 40 MG/VIAL (PROTONIX) IVP ONE (09:45)
[2021-07-08] MEDS ORDERED: NACL 0.9% 1,000 ML IV ONE (09:45)
[2021-07-08] MEDS ORDERED: ONDANSETRON HCL 4 MG/2 ML VIAL IVP ONE (09:45)
[2021-07-08] MEDS ORDERED: LORazepam 2 MG/ML VIAL IVP ONE (09:45)
--- NOTE | 2021-07-08 09:45 | NUR ---
# 20 gauge angiocath placed to left AC. Use of asceptic technique. Opsite placed over site. Blood return noted. Blood for lab drawn from site. Flushed with 10 cc of normal saline. No evidence of infiltration noted. Patient tolerated well.
[2021-07-08 10:03] LABS: BASOPHILS % (AUTO) 0.1 % (0.0-2.0); HEMATOCRIT 47.3 % (36-48); HEMOGLOBIN 15.7 g/dL (12.0-16.0); LYMPHOCYTES # (AUTO) 0.5 K/uL (1.0-5.5); MEAN CORPUSCULAR HEMOGLOBIN 33 pg (27-31); MEAN CORPUSCULAR HGB CONC 33 % (32-36); MEAN CORPUSCULAR VOLUME 98 fL (79.0-98.0); MONOCYTES # (AUTO) 0.7 K/uL (0.0-1.0); NEUTROPHILS # (AUTO) 6.9 K/uL (1.8-7.7); NEUTROPHILS % (AUTO) 84.9 % (40.0-70.0); PLATELET COUNT (AUTO) 225 K/uL (130-430); RED BLOOD CELL COUNT(AUTO) 4.82 MIL/uL (4.2-6.2); RED CELL DISTRIBUTION WIDTH 16.7 % (9.0-15.0); WHITE BLOOD COUNT (AUTO) 8.2 K/uL (4.8-10.8)
[2021-07-08 10:13] LABS: ANION GAP 31 (5-15); CALCIUM 9.8 mg/dL (8.4-11.0); CHLORIDE 87 mmol/L (98-107); CREATININE 1.28 mg/dL (0.55-1.30); GLUCOSE 141 mg/dL (70-99); POTASSIUM 4.5 mmol/L (3.5-5.1); SODIUM SERUM 134 mmol/L (136-145); UREA NITROGEN, BLOOD 21 mg/dL (8-21)
[2021-07-08 10:15] LABS: PROTHROMBIN TIME 10.9 SECS (9.5-12.5)
[2021-07-08 10:19] LABS: ALANINE AMINOTRANSFERASE 94 U/L (12-78); ALBUMIN 4.9 g/dL (3.4-4.8); ASPARTATE AMINOTRANSFERASE 126 U/L (10-37); LIPASE 304 U/L (73-393); TOTAL BILIRUBIN 1.3 mg/dL (0.0-1.0)
[2021-07-08 10:21] LABS: GFR AFRICAN AMERICAN 56 mL/min (>90)
[2021-07-08 10:22] LABS: ALCOHOL, BLOOD < 3 mg/dL (<10)
--- NOTE | 2021-07-08 11:23 | NUR ---
Pt ambulate to bathroom and provided urine sample. Pt states improvement with nausea but slightly dizzy. Stable gait. Resituated to room.
[2021-07-08 11:50] LABS: BILIRUBIN,URINE 3+ (NEGATIVE); BLOOD, URINE 1+ (NEGATIVE); CLARITY/URINE CLEAR (CLEAR); COLOR,URINE YELLOW (YELLOW); GLUCOSE,URINE NEGATIVE (NEGATIVE); KETONES,URINE 3+ (NEGATIVE); LEUKOCYTE ESTERASE ,URINE NEGATIVE (NEGATIVE); NITRITE, URINE NEGATIVE (NEGATIVE); PH,URINE 5.5 (5.0-8.0); PROTEIN URINE 1+ (NEGATIVE); UROBILINOGEN,URINE 0.2 (0.2-1.0)
[2021-07-08 11:59] LABS: BACTERIA,URINE FEW /HPF (None Seen); HYALINE CASTS, URINE 0-10 /LPF (None Seen); WBC,URINE 0-3 /HPF (0-3)
[2021-07-08 12:00] LABS: MUCUS,URINE 1+ /LPF (None Seen)
--- NOTE | 2021-07-08 12:02 | NUR ---
Patient resting in bed, no signs of pain or acute distress. IV site intact, patent, IVF still infusing.
[2021-07-08 12:06] LABS: BARBITURATE, URINE NEGATIVE (NEG <=200); BENZODIAZEPINE, URINE POSITIVE (NEG <=150); CANNABINOID, URINE NEGATIVE (NEG <=50); COCAINE, URINE NEGATIVE (NEG <=150); METHAMPHETAMINES SCREEN,URINE NEGATIVE (NEG <=500); OPIATE, URINE NEGATIVE (NEG <=100); PHENCYCLIDINE SCREEN,URINE NEGATIVE (NEG <=25); UR TRICYCLIC ANTIDEPRESSANTS NEGATIVE (NEG <=300); URINE AMPHETAMINE NEGATIVE (NEG <=500); URINE METHADONE NEGATIVE (NEG <=200); URINE OXYCODONE SCREEN NEGATIVE (NEG <=100); URINE PROPOXYPHENE SCREEN NEGATIVE (NEG <=300)
[2021-07-08] MEDS ORDERED: ONDA-8 TL (13:25)
[2021-07-08 13:42] VITALS: BP_SYST 127
--- NOTE | 2021-07-08 13:43 | NUR ---
Patient given written and verbal discharge instructions and verbalizes understanding. ODALYS cabrera MD discussed with patient the results and treatment provided. Patient in stable condition. ID arm band removed. IV catheter removed intact and dressing applied, no active bleeding. Rx of zofran given. Patient educated on pain management and to follow up with PMD. Pain Scale 0. Opportunity for questions provided and answered. Medication side effect fact sheet provided.
== END 2021-07-08 13:43 | disposition home or self-care (01) ==
LOC: SED 09:12
DX: K29.20 Alcoholic gastritis without bleeding (principal); F10.20 Alcohol dependence, uncomplicated; R11.2 Nausea with vomiting, unspecified; J45.909 Unspecified asthma, uncomplicated; Z79.899 Other long term (current) drug therapy; Y90.0 Blood alcohol level of less than 20 mg/100 ml
CPT/HCPCS: 36415; 80053; 80307; 81000; 81003; 82140; 83690; 85025; 85610; 96361; 96374; 96375; 99284; C9113; G0482; J2060; J2405; J7030

== ENCOUNTER 2022-06-03 13:03 | Inpatient (IN) | payer MEDICAID ==
[~2022-06-03] VITALS: Ht 172.7 cm; Wt 72.6 kg
[~2022-06-03 13:03] MED LIST changes: +CHLO10CA7 PO; -LIB10 PO; +MONT-40 PO; -MONT10TA33 PO; +ONDA-8 TL
[2022-06-03 13:12] VITALS: BP_SYST 138
--- NOTE | 2022-06-03 13:12 | NUR ---
Patient to ER bed 03 to gown for evaluation. Side rails up.
[2022-06-03 13:40] LABS: BILIRUBIN,URINE 3+ (NEGATIVE); BLOOD, URINE NEGATIVE (NEGATIVE); CLARITY/URINE CLEAR (CLEAR); COLOR,URINE ORANGE (YELLOW); GLUCOSE,URINE NEGATIVE (NEGATIVE); KETONES,URINE 3+ (NEGATIVE); LEUKOCYTE ESTERASE ,URINE NEGATIVE (NEGATIVE); NITRITE, URINE POSITIVE (NEGATIVE); PROTEIN URINE 2+ (NEGATIVE)
[2022-06-03 13:46] LABS: BASOPHILS % (AUTO) 0.6 % (0.0-2.0); EOSINOPHILS % (AUTO) 0.1 % (0.0-4.0); HEMATOCRIT 44.7 % (36-48); HEMOGLOBIN 15.7 g/dL (12.0-16.0); LYMPHOCYTES # (AUTO) 0.6 K/uL (1.0-5.5); LYMPHOCYTES % (AUTO) 13.7 % (20.5-51.5); MEAN CORPUSCULAR HEMOGLOBIN 36 pg (27-31); MEAN CORPUSCULAR HGB CONC 35 % (32-36); MEAN CORPUSCULAR VOLUME 103 fL (79.0-98.0); MONOCYTES # (AUTO) 0.6 K/uL (0.0-1.0); MONOCYTES % (AUTO) 13.9 % (1.7-9.3); NEUTROPHILS % (AUTO) 71.7 % (40.0-70.0); PLATELET COUNT (AUTO) 85 K/uL (130-430); RED BLOOD CELL COUNT(AUTO) 4.34 MIL/uL (4.2-6.2); RED CELL DISTRIBUTION WIDTH 13.6 % (9.0-15.0); WHITE BLOOD COUNT (AUTO) 4.2 K/uL (4.8-10.8)
[2022-06-03 13:53] LABS: RBC,URINE 0-3 /HPF (0-3); URINE SULFO SALICYLIC ACID NEGATIVE (NEGATIVE)
[2022-06-03 13:54] LABS: BACTERIA,URINE FEW /HPF (None Seen); MUCUS,URINE None Seen /LPF (None Seen)
[2022-06-03 14:02] LABS: ANION GAP 15 (5-15); CALCIUM 9.7 mg/dL (8.4-11.0); CHLORIDE 92 mmol/L (98-107); CREATININE 0.85 mg/dL (0.55-1.30); GLUCOSE 164 mg/dL (70-99); UREA NITROGEN, BLOOD 6 mg/dL (8-21)
[2022-06-03 14:18] LABS: ALANINE AMINOTRANSFERASE 203 U/L (12-78); ALBUMIN 4.2 g/dL (3.4-4.8); AMYLASE 63 U/L (0-100); ASPARTATE AMINOTRANSFERASE 319 U/L (10-37); LIPASE 1456 U/L (73-393)
[2022-06-03 14:20] LABS: ALCOHOL, BLOOD < 3 mg/dL (<10); C-REACTIVE PROTEIN QUANT < 0.2 mg/dL (0-0.5); GFR AFRICAN AMERICAN 90 mL/min (>90)
[2022-06-03] MEDS ORDERED: ONDANSETRON HCL 4 MG/2 ML VIAL IVP ONE (14:30)
--- NOTE | 2022-06-03 14:40 | NUR ---
NOTIFIED ED ADMITTING, ABRAM, REGARDING DR. CARCAMO'S REQUEST FOR ADMISSION/TRANSFER. PER DR. CARCAMO, PT IS STABLE FOR TRANSFER. WILL CONTACT FUEL SYSTEM MAINTENANCE SUPERVISOR REGARDING THIS MATTER. PER [facility]: [facility]/ [facility]
[2022-06-03] MEDS ORDERED: NACL 0.9% 1,000 ML IV ONE (14:45)
[2022-06-03] MEDS ORDERED: MORPHINE 4 MG INJ. 4 MG/ML VIAL IVP ONE ×2 (14:45→17:15)
[2022-06-03] MEDS ORDERED: cefTRIAXone 1 GM VIAL IM ONE (14:45)
--- NOTE | 2022-06-03 14:54 | NUR ---
JAY VALVERDE, ED ADMITTING, STATED SHE SPOKE TO [facility], MEEK Sanchez, REQUESTED FAX OF [facility] FAX: [phone]
[2022-06-03] MEDS ORDERED: cefTRIAXone 1 GM in D5W 50 ML IV ONE (15:00)
[2022-06-03 15:02] LABS: ACETONE, SERUM TRACE (NEGATIVE)
--- NOTE | 2022-06-03 15:11 | NUR ---
COVID-19 MARIO SWAB OBTAINED, LABELED, AND SENT TO THE LAB.
--- NOTE | 2022-06-03 16:14 | NUR ---
Admit bed requested Patient will be admitted to care of . Admitted to M/S unit. Diagnosis ACUTE PANCREATITIS Inpatient (Yes or No) Observation (Yes or No) N Orientation concerns or request close to nursing station (Yes or No) N Covid Status NEG On vent or bipap N Isolation requirements N Needs a sitter N From Home (Yes or if No enter name of facility) Y Requires Dialysis (Yes or No) N Med Rec Completed (Yes of No) Y
[2022-06-03] MEDS ORDERED: OMEPRAZOLE Non-Formulary 20 MG CAPSULE.DR PO ONE (16:15)
[2022-06-03] MEDS ORDERED: PANTOPRAZOLE SODIUM 40 MG TAB PO ONE (16:15)
[2022-06-03] MEDS ORDERED: FOLIC ACID 1 MG, THIAMINE HCL 100 MG, MAGNESIUM SULFATE 1 GM, MVI 10 ML in NACL 0.9% 1,... IV SCH (16:15)
[2022-06-03] MEDS ORDERED: TRAZ-250 PO (16:19)
[2022-06-03] MEDS ORDERED: THIAMINE HCL 100 MG, MAGNESIUM SULFATE 1 GM in NS 100 ML IV ONE (16:30)
[2022-06-03] MEDS ORDERED: FOLIC ACID 1 MG, MVI 10 ML in NACL 0.9% 1,000 ML IV ONE (16:30)
[2022-06-03 17:45] VITALS: BP_SYST 130
--- NOTE | 2022-06-03 17:45 | NUR ---
ADMISSION: PATIENT ADMITTED TO ROOM 124A. AAOX4 ABLE TO MAKE NEEDS KNOWN. PAIN THROUGHOUT ABD 09/10 AT THIS TIME. PATIENT RECEIVED MS 2MG IVP AROUND 3PM. PATIENT HAS EPISODE OF ANXIETY AND RELIEF BY WALKING AROUND THE ROOM AND HALLWAY. EXPLAIN POC AND PATIENT VERBALIZED UNDERSTANDING. IV TO THE LW 20G C/D/I. PAGED DR SANON TO REQUESTING MEDICATION FOR PAIN, NAUSEA, AND ANXIETY. ALL NEEDS MET AT THIS TIME. PATIENT IS RESTING IN BED. BED IN LOW AND LOCK POSITION. CALL LIGHT WITHIN REACH.
[2022-06-03] MEDS ORDERED: NALOXONE HCL 0.4 MG/ML AMP (NARCAN) IVP PRN (18:15)
[2022-06-03] MEDS ORDERED: ONDANSETRON HCL 4 MG/2 ML VIAL IM PRN (18:15)
[2022-06-03] MEDS: chlordiazePOXIDE HCL 25 MG CAPSULE PO PRN (18:41)
--- NOTE | 2022-06-03 18:45 | NUR ---
REFUSED DINNER: DID NOT HAVE APPETITE AT THIS TIME.
--- NOTE | 2022-06-03 18:58 | NUR ---
CLOSING NOTES: PATIENT IS RESTING IN BED QUIETLY WATCHING TV. ALL NEEDS METS. ZOFRAN WAS GIVEN FOR NAUSEA AND LIBRIUM WAS GIVEN FOR ANXIETY. WILL HANG IVF WHEN AVAILABLE. STABLE CONDITION AT THIS TIME.
--- NOTE | 2022-06-03 19:17 | NUR ---
Patient will be admitted to care of DR PALACIO. Admitted to MED S unit. Will go to room 124A. Belongings list completed. Complete and up to date summary report printed. SBAR report to be given at bedside with opportunity for questions.
[2022-06-03] MEDS: MORPHINE 2 MG/ML INJ. SYRINGE IVP PRN (20:32)
[2022-06-03] MEDS: MONTELUKAST 10 MG TABLET PO SCH (21:15)
[2022-06-03] MEDS ORDERED: FLUTICASONE 500 mCg/SALMETEROL 50 mCg DISKUS W.DEV IH SCH (21:15)
[2022-06-03] MEDS ORDERED: LevALBUTEROL HCL 1.25 MG/0.5 ML *CONC.* VIAL.NEB (XOPENEX CONC.) INH PRN (21:15)
[2022-06-03] MEDS: PANTOPRAZOLE SODIUM 40 MG/VIAL (PROTONIX) IVP SCH (21:15)
[2022-06-03 21:21] VITALS: BP_SYST 130
[2022-06-03] MEDS: LORazepam 2 MG/ML VIAL IVP PRN (21:48)
--- NOTE | 2022-06-03 22:19 | NUR ---
CONSULTATION PAGED/CALLED Reason for Consultation: ACUTE PANCREATITS Person Who was Notified: AWA Consulting Physician: JUVENTINO HEAD IS SALES REPRESENTATIVES [employer] Making Machine Supervisor Specialty: Ordering Physician: AGUSTIN
[2022-06-04] VITALS: BP_SYST 114
[2022-06-04] MEDS: IPRATROPIUM/ALBUTEROL SULFATE 3 ML AMPUL.NEB (DUONEB) INH SCH ×3 (00:40→13:43)
[2022-06-04] MEDS: MORPHINE 2 MG/ML INJ. SYRINGE IVP PRN ×3 (02:26→13:27)
[2022-06-04] MEDS ORDERED: BUDESONIDE 0.5 MG/2 ML AMPUL.NEB INH SCH (07:00)
[2022-06-04 08:03] LABS: BASOPHILS % (AUTO) 0.8 % (0.0-2.0); EOSINOPHILS # (AUTO) 0.1 K/uL (0.0-0.4); EOSINOPHILS % (AUTO) 1.4 % (0.0-4.0); HEMATOCRIT 38.4 % (36-48); LYMPHOCYTES # (AUTO) 0.6 K/uL (1.0-5.5); MEAN CORPUSCULAR HEMOGLOBIN 36 pg (27-31); MEAN CORPUSCULAR HGB CONC 34 % (32-36); MEAN CORPUSCULAR VOLUME 105 fL (79.0-98.0); MONOCYTES # (AUTO) 0.4 K/uL (0.0-1.0); MONOCYTES % (AUTO) 10.8 % (1.7-9.3); NEUTROPHILS # (AUTO) 2.4 K/uL (1.8-7.7); PLATELET COUNT (AUTO) 57 K/uL (130-430); RED BLOOD CELL COUNT(AUTO) 3.65 MIL/uL (4.2-6.2); RED CELL DISTRIBUTION WIDTH 13.4 % (9.0-15.0); WHITE BLOOD COUNT (AUTO) 3.5 K/uL (4.8-10.8)
[2022-06-04 08:08] LABS: CREATININE 0.52 mg/dL (0.55-1.30)
[2022-06-04] MEDS: PANTOPRAZOLE SODIUM 40 MG/VIAL (PROTONIX) IVP SCH (09:40)
[2022-06-04] MEDS: chlordiazePOXIDE HCL 25 MG CAPSULE PO PRN ×2 (09:44→13:23)
[2022-06-04] MEDS: LORazepam 2 MG/ML VIAL IVP PRN ×2 (09:48→13:32)
[2022-06-04] MEDS: MONTELUKAST 10 MG TABLET PO SCH (09:51)
[2022-06-04] MEDS ORDERED: THIAMINE HCL 100 MG, MAGNESIUM SULFATE 1 GM in NS 100 ML IV SCH ×2 (12:00→16:00)
[2022-06-04] MEDS ORDERED: FOLIC ACID 1 MG, MVI 10 ML in NACL 0.9% 1,000 ML IV SCH ×2 (12:00→16:00)
--- NOTE | 2022-06-04 18:28 | NUR ---
LEFT AGAINST MEDICAL ADVISE: Patient throughout the day was calm and accommodating. She had no problems but after 5 PM, two things occurred. First her son, Tonio Alexander called to check on his mother and advised RN of patient and her drug/alcohol habits, including her coming to various hospitals to seek drugs. This RN advised the patient that her son called and wished her well. Following that discussion, the patient came to the nurses station and said that she was going to leave and go back to the emergency rom. I asked her why but she wouldn't say. Patient then signed AMA form by signing an "X" on the patient signiture line and then left whith her belongings to rufus to the ED to see the physician again. Advised the ED that patient was going there and called patient's attending to advise that patient has left AMA at this time.
[2022-06-04] MEDS ORDERED: PHE25 PO (19:38)
[2022-06-04] MEDS ORDERED: ENOXAPARIN SODIUM 40 MG/0.4 ML SYRINGE SUBCUT SCH (21:00)
[2022-06-04] MEDS ORDERED: traZODone HCL 50 MG TABLET (DESYREL) PO SCH (21:00)
[2022-06-05] MEDS ORDERED: LORA-259 PO (04:56)
[2022-06-05] MEDS ORDERED: THIA50TA10 PO (05:01)
[2022-06-05] MEDS ORDERED: MAGN400T10 PO (05:01)
== END 2022-06-04 18:10 | disposition left against medical advice (07) | DRG 282 ==
LOC: SED 13:03 → SMU 16:12
PROVIDERS: ADMIT Family Medicine; ATTEND Family Medicine
DX: K85.20 Alcohol induced acute pancreatitis without necrosis or infection (principal); K70.9 Alcoholic liver disease, unspecified; F10.20 Alcohol dependence, uncomplicated; F32.A Depression, unspecified; J45.909 Unspecified asthma, uncomplicated; Z20.822 Contact with and (suspected) exposure to COVID-19; Z53.29 Procedure and treatment not carried out because of patient's decision for other reasons; R74.01 Elevation of levels of liver transaminase levels; K21.9 Gastro-esophageal reflux disease without esophagitis; Y90.9 Presence of alcohol in blood, level not specified; Z79.899 Other long term (current) drug therapy; N39.0 Urinary tract infection, site not specified
CPT/HCPCS: 36415; 76376; 80048; 80053; 81000; 82009; 82150; 83605; 83690; 83735; 84703; 85025; 86140; 87040; 93005; 94640; 94760; 96365; 96375; 96376; 99285; C9113; G0482; J0696; J2060; J2270; J2405; J3411; J3475; J3490; J7030; J7626

== ENCOUNTER 2022-06-04 18:22 | Emergency (ER) | payer MEDICAID ==
[~2022-06-04] VITALS: Ht 167.6 cm; Wt 72.6 kg
[~2022-06-04 18:22] MED LIST changes: -BUPR100T13 PO; -CEPH-568 PO; -CHLO10CA7 PO; -FOLI-43 PO; -METH-634 PO; -ONDA-8 TL; -PHEN100C4 PO; -PRO20 PO; -PRO40 PO; -THIA50TA10 PO; +TRAZ-250 PO
[2022-06-04 18:35] VITALS: BP_SYST 125
--- NOTE | 2022-06-04 18:45 | NUR ---
Patient triaged and placed in waiting room. VSS and patient appears in no acute distress at this time. Accompanied by SELF, awaiting available bed, and MD notified of need for MSE.
--- NOTE | 2022-06-04 19:25 | NUR ---
Patient to ER bed 3 to gown for evaluation. Side rails up. Report given to Vianey PALOMINO(reg).
--- NOTE | 2022-06-04 19:28 | NUR ---
PT AMA FROM MED SURG AND REQUESTED TO BE SEEN IN THE ER FOR MILD ETOH WITHDRAWL SYMPTOMS. ENDORSES NAUSEA AND TREMORS. DENIES VOMITING, SOB, CP, DIZZINESS.
[2022-06-04] MEDS ORDERED: PROMETHAZINE HCL 25 MG TABLET PO ONE (19:30)
[2022-06-04] MEDS ORDERED: LORazepam 1 MG TABLET PO ONE (19:30)
[2022-06-04] MEDS ORDERED: PHE25 PO (19:38)
[2022-06-04 19:45] VITALS: BP_SYST 125
--- NOTE | 2022-06-04 19:45 | NUR ---
Patient given written and verbal discharge instructions and verbalizes understanding. ER MD discussed with patient the results and treatment provided. Patient in stable condition. ID arm band removed. Rx of PROMETHAZINE given. Patient educated on pain management and to follow up with PMD. Pain Scale 0/10. Opportunity for questions provided and answered. Medication side effect fact sheet provided.
[2022-06-05] MEDS ORDERED: LORA-259 PO (04:56)
[2022-06-05] MEDS ORDERED: MAGN400T10 PO (05:01)
[2022-06-05] MEDS ORDERED: THIA50TA10 PO (05:01)
== END 2022-06-04 19:45 | disposition home or self-care (01) ==
LOC: SED 18:22
DX: F10.239 Alcohol dependence with withdrawal, unspecified (principal); K85.90 Acute pancreatitis without necrosis or infection, unspecified; F17.200 Nicotine dependence, unspecified, uncomplicated; J45.909 Unspecified asthma, uncomplicated; Z79.899 Other long term (current) drug therapy; Y90.6 Blood alcohol level of 120-199 mg/100 ml
CPT/HCPCS: 99283; Q0169

== ENCOUNTER 2023-02-16 15:51 | Inpatient (IN) | payer MEDICAID ==
[~2023-02-16] VITALS: Ht 172.7 cm; Wt 72.6 kg
[2023-02-16] MEDS: NACL 0.9% 1,000 ML IV SCH (03:50)
[~2023-02-16 15:51] MED LIST changes: +LORA-259 PO; +MAGN400T10 PO; +PHE25 PO; +THIA50TA10 PO
[2023-02-16 16:08] VITALS: BP_SYST 124; PULSE 140; RESP 18; TEMP 98.3; O2SAT 95
[2023-02-16] MEDS ORDERED: LORazepam 2 MG/ML VIAL IVP ONE ×2 (16:30→18:45)
[2023-02-16] MEDS ORDERED: NACL 0.9% 1,000 ML IV ONE ×2 (16:30→18:30)
[2023-02-16] MEDS ORDERED: ONDANSETRON HCL 4 MG/2 ML VIAL IVP ONE ×2 (16:30→18:45)
[2023-02-16 17:18] LABS: BASOPHILS % (AUTO) 0.2 % (0.0-2.0); HEMOGLOBIN 15.3 g/dL (12.0-16.0); LYMPHOCYTES # (AUTO) 0.2 K/uL (1.0-5.5); LYMPHOCYTES % (AUTO) 5.6 % (20.5-51.5); MEAN CORPUSCULAR HEMOGLOBIN 33 pg (27-31); MEAN CORPUSCULAR HGB CONC 33 % (32-36); MEAN CORPUSCULAR VOLUME 100 fL (79.0-98.0); MONOCYTES # (AUTO) 0.6 K/uL (0.0-1.0); MONOCYTES % (AUTO) 14.3 % (1.7-9.3); NEUTROPHILS # (AUTO) 3.5 K/uL (1.8-7.7); NEUTROPHILS % (AUTO) 79.9 % (40.0-70.0); PLATELET COUNT (AUTO) 116 K/uL (130-430); RED BLOOD CELL COUNT(AUTO) 4.68 MIL/uL (4.2-6.2); RED CELL DISTRIBUTION WIDTH 15.5 % (9.0-15.0); WHITE BLOOD COUNT (AUTO) 4.4 K/uL (4.8-10.8)
[2023-02-16 17:33] LABS: ALANINE AMINOTRANSFERASE 74 U/L (12-78); ALBUMIN 4.4 g/dL (3.4-4.8); ANION GAP 33 (5-15); ASPARTATE AMINOTRANSFERASE 157 U/L (10-37); CARBON DIOXIDE 11 mmol/L (23-29); CHLORIDE 91 mmol/L (98-107); CREATININE 1.21 mg/dL (0.55-1.30); GFR AFRICAN AMERICAN 60 mL/min (>90); GLUCOSE 125 mg/dL (74-106); POTASSIUM 3.4 mmol/L (3.5-5.1); SODIUM SERUM 135 mmol/L (136-145); TOTAL PROTEIN, SERUM 9.2 g/dL (6.4-8.3); UREA NITROGEN, BLOOD 16 mg/dL (8-21)
[2023-02-16 17:35] LABS: ALCOHOL, BLOOD 154 mg/dL (<10)
[2023-02-16 17:44] LABS: GFR NON AFRICAN-AMERICAN 49 mL/min (>90)
[2023-02-16 17:57] LABS: LIPASE 2301 U/L (73-393)
[2023-02-16] MEDS ORDERED: DIPHENHYDRAMINE INJ 50 MG/ML VIAL IVP ONE (18:45)
[2023-02-16] MEDS ORDERED: PIPERACILLIN/TAZO 3.375 GM in NS 50 ML IV ONE (19:00)
[2023-02-16] MEDS ORDERED: PIPERACILLIN/TAZOBACTAM 3.375 GM/VIAL (ZOSYN) IV ONE (19:55)
[2023-02-16] MEDS ORDERED: KCL 20 mEq in NS 1000 mL 1,000 ML IV ONE (20:15)
[2023-02-16] MEDS ORDERED: MORPHINE 4 MG INJ. 4 MG/ML VIAL IVP ONE (20:15)
[2023-02-16 21:50] LABS: BILIRUBIN,URINE 1+ (NEGATIVE); BLOOD, URINE 2+ (NEGATIVE); CLARITY/URINE SLIGHTLY HAZY (CLEAR); COLOR,URINE YELLOW (YELLOW); GLUCOSE,URINE NEGATIVE (NEGATIVE); KETONES,URINE 3+ (NEGATIVE); LEUKOCYTE ESTERASE ,URINE NEGATIVE (NEGATIVE); NITRITE, URINE NEGATIVE (NEGATIVE); PROTEIN URINE 2+ (NEGATIVE); UROBILINOGEN,URINE 0.2 (0.2-1.0)
[2023-02-16] MEDS ORDERED: IPRATROPIUM/ALBUTEROL SULFATE 3 ML AMPUL.NEB (DUONEB) INH PRN (22:00)
[2023-02-16] MEDS ORDERED: FOLIC ACID 1 MG, THIAMINE HCL 100 MG, MAGNESIUM SULFATE 1 GM, MVI 10 ML in NACL 0.9% 1,... IV ONE (22:00)
[2023-02-16] MEDS ORDERED: MORPHINE 2 MG/ML INJ. SYRINGE IVP PRN ×2 (22:00)
[2023-02-16] MEDS ORDERED: ZOLPIDEM TARTRATE 5 MG TABLET PO PRN (22:00)
[2023-02-16] MEDS ORDERED: ONDANSETRON HCL 4 MG/2 ML VIAL IVP PRN (22:00)
[2023-02-16] MEDS ORDERED: DOCUSATE SODIUM 100 MG CAPSULE PO PRN (22:00)
[2023-02-16] MEDS ORDERED: LORazepam 2 MG/ML VIAL IVP PRN (22:00)
[2023-02-16] MEDS ORDERED: MUPIROCIN 2% TOPICAL OINTMENT 22 GM NS PRN (22:00)
[2023-02-16] MEDS ORDERED: ACETAMINOPHEN 325 MG TABLET PO PRN (22:00)
[2023-02-16] MEDS ORDERED: MAGNESIUM SULFATE 50 ML IV PRN (22:00)
[2023-02-16 22:03] LABS: BACTERIA,URINE FEW /HPF (None Seen); MUCUS,URINE 1+ /LPF (None Seen); WBC,URINE 0-3 /HPF (0-3)
[2023-02-16 22:12] LABS: BARBITURATE, URINE NEGATIVE (NEG <=200); BENZODIAZEPINE, URINE NEGATIVE (NEG <=150); CANNABINOID, URINE NEGATIVE (NEG <=50); COCAINE, URINE NEGATIVE (NEG <=150); METHAMPHETAMINES SCREEN,URINE NEGATIVE (NEG <=500); OPIATE, URINE POSITIVE (NEG <=100); PHENCYCLIDINE SCREEN,URINE NEGATIVE (NEG <=25); URINE AMPHETAMINE NEGATIVE (NEG <=500); URINE METHADONE NEGATIVE (NEG <=200); URINE OXYCODONE SCREEN NEGATIVE (NEG <=100); URINE PROPOXYPHENE SCREEN NEGATIVE (NEG <=300)
[2023-02-16 22:13] LABS: UR TRICYCLIC ANTIDEPRESSANTS NEGATIVE (NEG <=300)
[2023-02-16] MEDS ORDERED: MAGNESIUM SULFATE 1 GM/2 ML VIAL ONE (23:30)
[2023-02-16] MEDS ORDERED: FOLIC ACID 5 MG/ML VIAL IV ONE (23:30)
[2023-02-16] MEDS ORDERED: THIAMINE HCL 100 MG/ML VIAL ONE (23:30)
[2023-02-16] MEDS ORDERED: MVI 10 ML VIAL IV ONE (23:30)
[2023-02-16 23:40] VITALS: BP_SYST 121; PULSE 112; O2SAT 96
[2023-02-16] MEDS: chlordiazePOXIDE HCL 25 MG CAPSULE PO SCH (23:40)
[2023-02-17] VITALS (8 sets, daily range): BP systolic 111–133; PULSE 86–105; RESP 18–20; TEMP 97.3–98; O2SAT 95–100
[2023-02-17] MEDS: ALBUTEROL SULFATE 0.083% 2.5 MG/3 ML VIAL.NEB INH SCH ×3 (02:02→19:55)
[2023-02-17 07:05] LABS: BASOPHILS % (AUTO) 0.3 % (0.0-2.0); HEMATOCRIT 37.7 % (36-48); HEMOGLOBIN 12.2 g/dL (12.0-16.0); LYMPHOCYTES # (AUTO) 0.6 K/uL (1.0-5.5); LYMPHOCYTES % (AUTO) 9.8 % (20.5-51.5); MEAN CORPUSCULAR HEMOGLOBIN 33 pg (27-31); MEAN CORPUSCULAR HGB CONC 32 % (32-36); MEAN CORPUSCULAR VOLUME 101 fL (79.0-98.0); MONOCYTES # (AUTO) 1.1 K/uL (0.0-1.0); MONOCYTES % (AUTO) 16.4 % (1.7-9.3); NEUTROPHILS # (AUTO) 4.7 K/uL (1.8-7.7); NEUTROPHILS % (AUTO) 73.5 % (40.0-70.0); PLATELET COUNT (AUTO) 70 K/uL (130-430); RED BLOOD CELL COUNT(AUTO) 3.73 MIL/uL (4.2-6.2); RED CELL DISTRIBUTION WIDTH 15.7 % (9.0-15.0); WHITE BLOOD COUNT (AUTO) 6.4 K/uL (4.8-10.8)
[2023-02-17] MEDS: BUDESONIDE 0.5 MG/2 ML AMPUL.NEB INH SCH ×2 (07:10→19:54)
[2023-02-17 07:36] LABS: CALCIUM 7.6 mg/dL (8.4-11.0); CREATININE 1.06 mg/dL (0.55-1.30); POTASSIUM 3.3 mmol/L (3.5-5.1)
[2023-02-17] MEDS: MONTELUKAST 10 MG TABLET PO SCH (09:00)
[2023-02-17] MEDS ORDERED: FLUTICASONE 500 mCg/SALMETEROL 50 mCg DISKUS W.DEV IH SCH (09:00)
[2023-02-17] MEDS: NEPHROVITE, (FOLIC ACID/VITAMIN B COMP W-C 1 TAB) PO SCH (09:00)
[2023-02-17] MEDS: chlordiazePOXIDE HCL 25 MG CAPSULE PO SCH ×3 (09:00→20:49)
[2023-02-17] MEDS: THIAMINE HCL 100 MG TABLET PO SCH (09:00)
[2023-02-17] MEDS ORDERED: traZODone HCL 50 MG TABLET (DESYREL) PO SCH (21:00)
[2023-02-17] MEDS: NACL 0.9% 1,000 ML IV SCH (23:27)
[2023-02-18] VITALS (8 sets, daily range): BP systolic 103–120; PULSE 66–118; RESP 16–17; TEMP 97–97.8; O2SAT 94–99
[2023-02-18] MEDS: ALBUTEROL SULFATE 0.083% 2.5 MG/3 ML VIAL.NEB INH SCH ×3 (01:00→13:53)
[2023-02-18 04:52] LABS: BASOPHILS % (AUTO) 0.4 % (0.0-2.0); EOSINOPHILS % (AUTO) 0.4 % (0.0-4.0); HEMOGLOBIN 12.6 g/dL (12.0-16.0); LYMPHOCYTES # (AUTO) 0.7 K/uL (1.0-5.5); LYMPHOCYTES % (AUTO) 23.4 % (20.5-51.5); MEAN CORPUSCULAR HEMOGLOBIN 33 pg (27-31); MEAN CORPUSCULAR HGB CONC 33 % (32-36); MEAN CORPUSCULAR VOLUME 99 fL (79.0-98.0); MONOCYTES # (AUTO) 0.5 K/uL (0.0-1.0); MONOCYTES % (AUTO) 17.9 % (1.7-9.3); NEUTROPHILS # (AUTO) 1.7 K/uL (1.8-7.7); NEUTROPHILS % (AUTO) 57.9 % (40.0-70.0); PLATELET COUNT (AUTO) 60 K/uL (130-430); RED BLOOD CELL COUNT(AUTO) 3.84 MIL/uL (4.2-6.2)
[2023-02-18 05:06] LABS: CALCIUM 8.5 mg/dL (8.4-11.0); CREATININE 0.87 mg/dL (0.55-1.30)
[2023-02-18 05:12] LABS: POTASSIUM 2.7 mmol/L (3.5-5.1)
[2023-02-18] MEDS: POTASSIUM CHLORIDE 20 MEQ TAB.PRT.SR PO PRN ×2 (05:39→11:57)
[2023-02-18] MEDS: NACL 0.9% 1,000 ML IV SCH (05:49)
[2023-02-18] MEDS: BUDESONIDE 0.5 MG/2 ML AMPUL.NEB INH SCH (07:12)
[2023-02-18] MEDS: MONTELUKAST 10 MG TABLET PO SCH (09:09)
[2023-02-18] MEDS: chlordiazePOXIDE HCL 25 MG CAPSULE PO SCH ×2 (09:09→15:27)
[2023-02-18] MEDS: THIAMINE HCL 100 MG TABLET PO SCH (09:10)
[2023-02-18] MEDS: NEPHROVITE, (FOLIC ACID/VITAMIN B COMP W-C 1 TAB) PO SCH (09:12)
[2023-02-18] MEDS ORDERED: LIB25 PO (09:28)
[2023-02-18] MEDS ORDERED: PANTOPRAZOLE SODIUM 40 MG TAB PO ONE (09:30)
[2023-02-20 12:00] VITALS: BP_SYST 123; PULSE 65; RESP 18; TEMP 97.8; O2SAT 96
== END 2023-02-18 18:00 | disposition home or self-care (01) | DRG 282 ==
LOC: SED 15:51 → SMU 21:43
PROVIDERS: ADMIT General Practice; ATTEND General Practice
DX: K85.20 Alcohol induced acute pancreatitis without necrosis or infection (principal); E87.29 Other acidosis; R65.10 Systemic inflammatory response syndrome (SIRS) of non-infectious origin without acute organ dysfunction; D69.59 Other secondary thrombocytopenia; K70.9 Alcoholic liver disease, unspecified; E87.6 Hypokalemia; E87.1 Hypo-osmolality and hyponatremia; F41.9 Anxiety disorder, unspecified; J44.9 Chronic obstructive pulmonary disease, unspecified; K21.9 Gastro-esophageal reflux disease without esophagitis; F32.A Depression, unspecified; F10.10 Alcohol abuse, uncomplicated; Y90.9 Presence of alcohol in blood, level not specified; R74.01 Elevation of levels of liver transaminase levels
CPT/HCPCS: 36415; 71045; 76376; 80048; 80053; 80307; 81000; 83037; 83605; 83690; 83735; 84132; 84484; 85025; 87040; 87086; 94640; 94760; 99291; G0482; J1200; J2060; J2270; J2405; J2543; J3411; J3475; J3480; J3490; J7030; J7613; J7626

== ENCOUNTER 2023-02-22 07:39 | Inpatient (IN) | payer MEDICAID ==
[~2023-02-22] VITALS: Ht 172.7 cm; Wt 74.8 kg
[~2023-02-22 07:39] MED LIST changes: +LIB25 PO
[2023-02-22 07:56] VITALS: BP_SYST 128; PULSE 92; RESP 18; TEMP 98.3; O2SAT 96
[2023-02-22] MEDS ORDERED: PANTOPRAZOLE SODIUM 40 MG/VIAL (PROTONIX) IVP ONE (08:15)
[2023-02-22] MEDS ORDERED: NACL 0.9% 1,000 ML IV ONE ×2 (08:15→08:45)
[2023-02-22 08:55] LABS: BASOPHILS % (AUTO) 0.7 % (0.0-2.0); EOSINOPHILS # (AUTO) 0.1 K/uL (0.0-0.4); EOSINOPHILS % (AUTO) 2.4 % (0.0-4.0); HEMATOCRIT 37.8 % (36-48); HEMOGLOBIN 12.7 g/dL (12.0-16.0); LYMPHOCYTES # (AUTO) 0.7 K/uL (1.0-5.5); LYMPHOCYTES % (AUTO) 19.4 % (20.5-51.5); MEAN CORPUSCULAR HEMOGLOBIN 33 pg (27-31); MEAN CORPUSCULAR HGB CONC 34 % (32-36); MEAN CORPUSCULAR VOLUME 98 fL (79.0-98.0); NEUTROPHILS # (AUTO) 1.6 K/uL (1.8-7.7); NEUTROPHILS % (AUTO) 47.5 % (40.0-70.0); PLATELET COUNT (AUTO) 111 K/uL (130-430); RED BLOOD CELL COUNT(AUTO) 3.86 MIL/uL (4.2-6.2); RED CELL DISTRIBUTION WIDTH 16.3 % (9.0-15.0); WHITE BLOOD COUNT (AUTO) 3.4 K/uL (4.8-10.8)
[2023-02-22 09:28] LABS: ALANINE AMINOTRANSFERASE 61 U/L (12-78); ALBUMIN 3.1 g/dL (3.4-4.8); ANION GAP 6 (5-15); ASPARTATE AMINOTRANSFERASE 83 U/L (10-37); CALCIUM 9.3 mg/dL (8.4-11.0); CARBON DIOXIDE 33 mmol/L (23-29); CHLORIDE 96 mmol/L (98-107); CREATININE 0.52 mg/dL (0.55-1.30); GFR AFRICAN AMERICAN 158 mL/min (>90); GLUCOSE 117 mg/dL (74-106); LIPASE 964 U/L (73-393); SODIUM SERUM 135 mmol/L (136-145); TOTAL BILIRUBIN 0.7 mg/dL (0.0-1.0); TOTAL PROTEIN, SERUM 6.5 g/dL (6.4-8.3); UREA NITROGEN, BLOOD 4 mg/dL (8-21)
[2023-02-22 09:31] LABS: ALCOHOL, BLOOD < 3 mg/dL (<10); GFR NON AFRICAN-AMERICAN 131 mL/min (>90); POTASSIUM 2.1 mmol/L (3.5-5.1)
[2023-02-22] MEDS ORDERED: KCL 20 mEq in 100 mL (PREMIX) 100 ML IV ONE (09:45)
[2023-02-22 10:20] LABS: BILIRUBIN,URINE NEGATIVE (NEGATIVE); BLOOD, URINE NEGATIVE (NEGATIVE); CLARITY/URINE CLEAR (CLEAR); COLOR,URINE YELLOW (YELLOW); GLUCOSE,URINE NEGATIVE (NEGATIVE); KETONES,URINE NEGATIVE (NEGATIVE); LEUKOCYTE ESTERASE ,URINE NEGATIVE (NEGATIVE); NITRITE, URINE NEGATIVE (NEGATIVE); PROTEIN URINE NEGATIVE (NEGATIVE)
[2023-02-22] MEDS: D5/0.45 NS 1,000 ML IV SCH (11:00)
[2023-02-22] MEDS ORDERED: MORPHINE 4 MG INJ. 4 MG/ML VIAL IVP ONE (12:00)
[2023-02-22] MEDS ORDERED: ONDANSETRON HCL 4 MG/2 ML VIAL IVP ONE (12:00)
[2023-02-22 15:00] VITALS: O2SAT 96
[2023-02-22] MEDS: MORPHINE 4 MG INJ. 4 MG/ML VIAL IVP PRN ×2 (17:50→21:57)
[2023-02-22 20:00] VITALS: BP_SYST 93; PULSE 99; RESP 15; TEMP 97.4; O2SAT 92
[2023-02-22] MEDS ORDERED: ONDANSETRON HCL 4 MG/2 ML VIAL IVP PRN (20:30)
[2023-02-22] MEDS ORDERED: FLUTICASONE 500 mCg/SALMETEROL 50 mCg DISKUS W.DEV INH SCH (21:00)
[2023-02-22 21:45] VITALS: BP_SYST 133; PULSE 98; RESP 18; O2SAT 96
[2023-02-22 22:04] VITALS: BP_SYST 133; PULSE 98; RESP 18; TEMP 97.4
[2023-02-22 22:25] VITALS: O2SAT 96
[2023-02-22] MEDS: LORazepam 2 MG/ML VIAL IVP PRN (23:54)
[2023-02-23] VITALS (12 sets, daily range): BP systolic 100–139; PULSE 94–109; RESP 16–20; TEMP 96.5–98.7; O2SAT 92–100
[2023-02-23] MEDS: D5/0.45 NS 1,000 ML IV SCH ×3 (02:53→16:30)
[2023-02-23 05:51] LABS: BASOPHILS % (AUTO) 0.4 % (0.0-2.0); EOSINOPHILS # (AUTO) 0.1 K/uL (0.0-0.4); HEMOGLOBIN 12.1 g/dL (12.0-16.0); LYMPHOCYTES # (AUTO) 0.5 K/uL (1.0-5.5); LYMPHOCYTES % (AUTO) 11.3 % (20.5-51.5); MEAN CORPUSCULAR HEMOGLOBIN 33 pg (27-31); MEAN CORPUSCULAR HGB CONC 34 % (32-36); MEAN CORPUSCULAR VOLUME 98 fL (79.0-98.0); MONOCYTES # (AUTO) 1.1 K/uL (0.0-1.0); MONOCYTES % (AUTO) 25.9 % (1.7-9.3); NEUTROPHILS # (AUTO) 2.7 K/uL (1.8-7.7); NEUTROPHILS % (AUTO) 60.4 % (40.0-70.0); PLATELET COUNT (AUTO) 150 K/uL (130-430); RED BLOOD CELL COUNT(AUTO) 3.69 MIL/uL (4.2-6.2); RED CELL DISTRIBUTION WIDTH 16.7 % (9.0-15.0); WHITE BLOOD COUNT (AUTO) 4.4 K/uL (4.8-10.8)
[2023-02-23 06:20] LABS: ALBUMIN 2.7 g/dL (3.4-4.8); CREATININE 0.49 mg/dL (0.55-1.30); TOTAL BILIRUBIN 0.7 mg/dL (0.0-1.0); TOTAL PROTEIN, SERUM 5.8 g/dL (6.4-8.3)
[2023-02-23 06:27] LABS: POTASSIUM 2.2 mmol/L (3.5-5.1)
[2023-02-23] MEDS ORDERED: POTASSIUM CHLORIDE 40 MEQ in 0.45% NS 250 ML IV ONE (06:45)
[2023-02-23] MEDS: BUDESONIDE 0.5 MG/2 ML AMPUL.NEB INH SCH ×2 (08:16→19:58)
[2023-02-23] MEDS: ALBUTEROL SULFATE 0.083% 2.5 MG/3 ML VIAL.NEB INH SCH ×3 (08:16→19:57)
[2023-02-23] MEDS: MORPHINE 4 MG INJ. 4 MG/ML VIAL IVP PRN (09:19)
[2023-02-23] MEDS ORDERED: MILK OF MAGNESIA 30 ML UDC PO ONE ×2 (10:00→21:00)
[2023-02-23] MEDS ORDERED: POTASSIUM CHLORIDE 20 MEQ TAB.PRT.SR PO ONE (10:00)
[2023-02-23] MEDS: LORazepam 2 MG/ML VIAL IVP PRN (12:11)
[2023-02-23] MEDS: MORPHINE 2 MG/ML INJ. SYRINGE IVP PRN ×2 (15:25→21:06)
[2023-02-23] MEDS ORDERED: BUDESONIDE 0.5 MG/2 ML AMPUL.NEB ONE (19:57)
[2023-02-24] VITALS (12 sets, daily range): BP systolic 90–133; PULSE 70–124; RESP 16–19; TEMP 96.5–98.2; O2SAT 90–100
[2023-02-24] MEDS: ALBUTEROL SULFATE 0.083% 2.5 MG/3 ML VIAL.NEB INH SCH ×3 (00:52→14:27)
[2023-02-24] MEDS: LORazepam 2 MG/ML VIAL IVP PRN ×2 (03:54→09:44)
[2023-02-24] MEDS: D5/0.45 NS 1,000 ML IV SCH (03:57)
[2023-02-24 05:28] LABS: BASOPHILS % (AUTO) 0.6 % (0.0-2.0); EOSINOPHILS # (AUTO) 0.1 K/uL (0.0-0.4); EOSINOPHILS % (AUTO) 2.1 % (0.0-4.0); HEMATOCRIT 36.8 % (36-48); HEMOGLOBIN 12.4 g/dL (12.0-16.0); LYMPHOCYTES # (AUTO) 0.6 K/uL (1.0-5.5); LYMPHOCYTES % (AUTO) 16.5 % (20.5-51.5); MEAN CORPUSCULAR HEMOGLOBIN 33 pg (27-31); MEAN CORPUSCULAR HGB CONC 34 % (32-36); MEAN CORPUSCULAR VOLUME 97 fL (79.0-98.0); MONOCYTES # (AUTO) 1.2 K/uL (0.0-1.0); MONOCYTES % (AUTO) 31.5 % (1.7-9.3); NEUTROPHILS # (AUTO) 1.9 K/uL (1.8-7.7); NEUTROPHILS % (AUTO) 49.3 % (40.0-70.0); PLATELET COUNT (AUTO) 197 K/uL (130-430); RED BLOOD CELL COUNT(AUTO) 3.78 MIL/uL (4.2-6.2); RED CELL DISTRIBUTION WIDTH 16.4 % (9.0-15.0); WHITE BLOOD COUNT (AUTO) 3.8 K/uL (4.8-10.8)
[2023-02-24 06:38] LABS: ALBUMIN 2.6 g/dL (3.4-4.8); CALCIUM 8.4 mg/dL (8.4-11.0); CREATININE 0.5 mg/dL (0.55-1.30); TOTAL BILIRUBIN 0.7 mg/dL (0.0-1.0); TOTAL PROTEIN, SERUM 5.8 g/dL (6.4-8.3)
[2023-02-24] MEDS: MORPHINE 2 MG/ML INJ. SYRINGE IVP PRN ×3 (07:04→21:23)
[2023-02-24 07:12] LABS: POTASSIUM 2.7 mmol/L (3.5-5.1)
[2023-02-24] MEDS: BUDESONIDE 0.5 MG/2 ML AMPUL.NEB INH SCH (07:26)
[2023-02-24] MEDS ORDERED: POTASSIUM CHLORIDE 20 MEQ TAB.PRT.SR PO ONE (11:00)
[2023-02-24] MEDS ORDERED: HYDROcodone/ACETAMIN 5-325 MG TAB (NORCO/ VICODIN) PO PRN (11:15)
[2023-02-24] MEDS ORDERED: NALOXONE HCL 0.4 MG/ML AMP (NARCAN) IVP PRN ×2 (11:15)
[2023-02-24] MEDS ORDERED: ACETAMINOPHEN 325 MG TABLET PO PRN ×2 (11:15→11:30)
[2023-02-24] MEDS: [UNRECOGNIZED DRUG - OTHER] IV SCH ×2 (12:57→22:12)
[2023-02-24] MEDS: D5 IV SCH ×2 (12:57→22:12)
[2023-02-24] MEDS: POTASSIUM CHLORIDE IV SCH ×2 (12:57→22:12)
[2023-02-24] MEDS ORDERED: MAGNESIUM SULFATE 50 ML IV ONE (13:00)
[2023-02-24] MEDS ORDERED: BUDESONIDE 0.5 MG/2 ML AMPUL.NEB INH SCH (19:00)
[2023-02-24] MEDS: POTASSIUM CHLORIDE 20 MEQ TAB.PRT.SR PO SCH (21:13)
[2023-02-25] VITALS (8 sets, daily range): BP systolic 96–118; PULSE 108–118; RESP 18; TEMP 97.3–98.2; O2SAT 93–100
[2023-02-25] MEDS: HYDROcodone/ACETAMIN 10-325 MG TAB PO PRN ×3 (01:46→12:51)
[2023-02-25] MEDS: MORPHINE 2 MG/ML INJ. SYRINGE IVP PRN (02:33)
[2023-02-25 05:00] LABS: BASOPHILS % (AUTO) 0.6 % (0.0-2.0); EOSINOPHILS # (AUTO) 0.1 K/uL (0.0-0.4); EOSINOPHILS % (AUTO) 1.9 % (0.0-4.0); HEMATOCRIT 39.9 % (36-48); HEMOGLOBIN 13.3 g/dL (12.0-16.0); LYMPHOCYTES # (AUTO) 0.8 K/uL (1.0-5.5); MEAN CORPUSCULAR HEMOGLOBIN 33 pg (27-31); MEAN CORPUSCULAR HGB CONC 33 % (32-36); MEAN CORPUSCULAR VOLUME 98 fL (79.0-98.0); MONOCYTES # (AUTO) 1.3 K/uL (0.0-1.0); MONOCYTES % (AUTO) 28.7 % (1.7-9.3); NEUTROPHILS # (AUTO) 2.4 K/uL (1.8-7.7); NEUTROPHILS % (AUTO) 51.8 % (40.0-70.0); PLATELET COUNT (AUTO) 302 K/uL (130-430); RED BLOOD CELL COUNT(AUTO) 4.08 MIL/uL (4.2-6.2); RED CELL DISTRIBUTION WIDTH 17.3 % (9.0-15.0); WHITE BLOOD COUNT (AUTO) 4.7 K/uL (4.8-10.8)
[2023-02-25 05:18] LABS: CALCIUM 8.8 mg/dL (8.4-11.0); CREATININE 0.47 mg/dL (0.55-1.30); POTASSIUM 4.4 mmol/L (3.5-5.1); TOTAL PROTEIN, SERUM 6.6 g/dL (6.4-8.3)
[2023-02-25] MEDS: POTASSIUM CHLORIDE IV SCH ×2 (05:44→18:36)
[2023-02-25] MEDS: [UNRECOGNIZED DRUG - OTHER] IV SCH ×2 (05:44→18:36)
[2023-02-25] MEDS: D5 IV SCH ×2 (05:44→18:36)
[2023-02-25 05:45] LABS: PHOSPHORUS 0.6 mg/dL (2.7-4.5)
[2023-02-25] MEDS: ALBUTEROL SULFATE 0.083% 2.5 MG/3 ML VIAL.NEB INH SCH ×2 (07:23→13:41)
[2023-02-25] MEDS: POTASSIUM CHLORIDE 20 MEQ TAB.PRT.SR PO SCH (09:00)
[2023-02-25] MEDS ORDERED: NA PHOS 30 MM in NS 250 ML IV ONE (09:30)
[2023-02-25] MEDS: LORazepam 2 MG/ML VIAL IVP PRN (11:42)
[2023-02-25] MEDS ORDERED: HYDR-3917 PO (17:32)
== END 2023-02-25 18:38 | disposition home health service (06) | DRG 282 ==
LOC: SED 07:39 → SMU 10:55
PROVIDERS: ADMIT Preventive Medicine Preventive Medicine/Occupational Environmental Medicine; ATTEND Preventive Medicine Preventive Medicine/Occupational Environmental Medicine
DX: K85.90 Acute pancreatitis without necrosis or infection, unspecified (principal); R65.11 Systemic inflammatory response syndrome (SIRS) of non-infectious origin with acute organ dysfunction; D69.6 Thrombocytopenia, unspecified; E44.1 Mild protein-calorie malnutrition; E83.39 Other disorders of phosphorus metabolism; E88.09 Other disorders of plasma-protein metabolism, not elsewhere classified; E87.1 Hypo-osmolality and hyponatremia; E11.65 Type 2 diabetes mellitus with hyperglycemia; D72.819 Decreased white blood cell count, unspecified; E87.6 Hypokalemia; F32.A Depression, unspecified; F41.9 Anxiety disorder, unspecified; J44.9 Chronic obstructive pulmonary disease, unspecified; F10.20 Alcohol dependence, uncomplicated; Y90.9 Presence of alcohol in blood, level not specified; R29.6 Repeated falls; Z68.25 Body mass index [BMI] 25.0-25.9, adult
CPT/HCPCS: 36415; 76376; 80053; 80061; 81003; 82150; 83690; 83735; 84100; 85025; 87081; 94640; 94760; 96361; 96374; 97116-GP; 97163-GP; 97530-GP; 99285; C9113; G0482; J2060; J2270; J2405; J3475; J3480; J7030; J7040; J7050; J7626